=== PATIENT | male | born 1955 | race Caucasian/White ===

== ENCOUNTER 2018-08-22 12:09 | Emergency (ER) | payer OTHER ==
[~2018-08-22] VITALS: Ht 172.7 cm; Wt 79.4 kg
[2018-08-22 12:36] VITALS: BP_SYST 133
--- NOTE | 2018-08-22 13:00 | NUR ---
Patient arrived via POV with family present. Patient AAOx4, and ambulatory with steady gait. Patient c/c of animal bite. Patient states he was helping his daughter move from her apartment and a neighboring dog bit him. Patient has wounds to left ring finger, 2 puncture sites and to left lateral thigh x 2 puncture site. Patient washed sites with soap and water and had neosporin applied. Patient was able to get information regarding shots record for dog. Patient unsure as to when his last tetanus shot was. Will continue to follow up and monitor, bleeding controlled at this time.
--- NOTE | 2018-08-22 13:02 | NUR ---
ER at bedside examining patient.
--- NOTE | 2018-08-22 13:14 | NUR ---
Wounds cleansed again with assistance from LINDA Solis. Cleansed with betadine. Applied bacitracin and wrapped with gauze wrap to finger, and bandaids applied to lateral thigh. Patient tolerated well.
[2018-08-22] MEDS ORDERED: DIPH-TET-PERTUS Vaccine 0.5 ML VIAL (ADACEL) I.M. ONE (13:15)
[2018-08-22] MEDS ORDERED: BACITRACIN 1 GM OINT TP ONE (13:15)
--- NOTE | 2018-08-22 14:10 | NUR ---
Patient has filled out [facility] reporting form. Faxed to [phone].
[2018-08-22 14:13] VITALS: BP_SYST 133
--- NOTE | 2018-08-22 14:13 | NUR ---
Patient given written and verbal discharge instructions and verbalizes understanding. ER MD discussed with patient the results and treatment provided. Patient in stable condition. ID arm band removed. Rx of Acetaminophen and Keflex given. Patient educated on pain management and to follow up with PMD. Pain Scale 0/10. Opportunity for questions provided and answered. Medication side effect fact sheet provided.
== END 2018-08-22 14:13 | disposition home or self-care (01) ==
LOC: SED 12:09
DX: S61.235A Puncture wound without foreign body of left ring finger without damage to nail, initial encounter (principal); S71.132A Puncture wound without foreign body, left thigh, initial encounter; W54.0XXA Bitten by dog, initial encounter; Y93.89 Activity, other specified; Y92.89 Other specified places as the place of occurrence of the external cause; Y99.8 Other external cause status
CPT/HCPCS: 90715; 99283